=== PATIENT | male | born 1955 | race Caucasian/White ===

== ENCOUNTER 2023-11-07 06:52 | Day surgery (SDC) | payer OTHER, SELFPAY ==
[2023-11-07 06:53] VITALS: BP 145/88; BMI 35.8
[2023-11-07 09:01] VITALS: BP 108/83
[2023-11-07 09:15] VITALS: BP 129/85
[2023-11-07 09:25] VITALS: BP 125/92
== END 2023-11-07 09:41 | disposition home or self-care (01) ==
LOC: GI 06:52
PROVIDERS: ATTENDING PHYSICIAN Internal Medicine Gastroenterology
DX: Z12.11 Encounter for screening for malignant neoplasm of colon (principal); D12.1 Benign neoplasm of appendix; K63.5 Polyp of colon; K57.30 Diverticulosis of large intestine without perforation or abscess without bleeding; K64.0 First degree hemorrhoids; Z86.010 Personal history of colon polyps
CPT/HCPCS: 45388; 88305

== ENCOUNTER 2023-12-23 06:11 | Day surgery (SDC) | payer OTHER, SELFPAY ==
[2023-12-15 06:48] VITALS: BMI 36.4
[2023-12-15 08:52] LABS: Hematocrit 45.1 % (39.0-52.0); Hemoglobin 15.8 g/dL (13.0-18.0); Mean Corpuscular Hgb 31.6 pg (27.0-31.0); Mean Corpuscular Volume 90.2 fL (80.0-94.0); Mean Platelet Volume 9.7 fL (7.4-10.4); Platelet Count 300 10^3/uL (130-400); Red Cell Dist. Width 13.7 % (11.5-14.5); White Blood Cell Count 9.1 10^3/uL (4.8-10.8)
[2023-12-15 09:06] LABS: INR 1.13; PT 14.3 Sec (11.4-14.6)
[2023-12-15 09:07] LABS: APTT 27.7 Sec (23.4-35.0)
[2023-12-15 09:21] LABS: ALT (SGPT) 22 U/L (0-50); AST (SGOT) 21 U/L (17-59); Albumin 4.3 g/dl (3.5-5.0); Alkaline Phosphatase 47 U/L (38-126); Blood Urea Nitrogen 13 mg/dl (9-20); Calcium 9.6 mg/dl (8.4-10.2); Carbon Dioxide 28 mmol/L (22-30); Chloride 105 mmol/L (98-107); Estimated Creatinine Clearance 118 ml/min; Glucose 108 mg/dl (70-99); Potassium 4.5 mmol/L (3.5-5.1); Sodium 140 mmol/L (135-145); Total Bilirubin 0.8 mg/dl (0.2-1.3); Total Protein 6.8 g/dl (6.3-8.2); eGFR > 60.00
[2023-12-15 09:45] LABS: Glycohemoglobin (HgbA1c) 6.2 % (4.0-5.6)
--- NOTE | 2023-12-18 10:49 | CM ---
Patient is scheduled for a Robotic Appendectomy on 12/23/23. Spoke with patient prior to surgery via telephone to complete case management assessment and assess for discharge planning needs. Patient reports that he lives with his significant other
(who is an RN) in a two story home. There are three steps to enter and a flight of steps to the second floor. He currently functions independently. He has no DME and has never had VN services. He has a prescription plan and uses [facility] in [place].
PCP is Pb Gottlieb
Discussed discharge plans. Patient plans to return home at discharge. He states that he will have support from his significant other when he goes home. He has no discharge planning concerns at this time.
[2023-12-23] VITALS (12 sets, daily range): BP systolic 126–165; BP diastolic 83–96; BMI 36.4
[2023-12-23] MEDS: LYRICA 150 MG PO (07:29)
[2023-12-23] MEDS: TYLENOL 1000 MG PO (07:29)
[2023-12-23] MEDS: HEPARIN 5000 UNITS SC (07:29)
[2023-12-23] MEDS: NORMOSOL-R 1000 IV (07:30)
[2023-12-23] MEDS: ENTEREG 12 MG PO (07:30)
--- NOTE | 2023-12-23 10:14 | W.IMMPOSTOP ---
Surgical Immed Post Op Note
-
Primary Surgeon: Nino Bourgeois MD
Assisting Surgeon: Beto Alvarado MD - performed intra-op colonoscopy; PAUL Stone
Pre-op Diagnosis: appendiceal orifice polyp
Post-op Diagnosis: same
Procedure Performed: robotic appendectomy with partial cecectomy, lysis of adhesions greater than 30mins, intra-operative colonoscopy, laparoscopic TAP block
Anesthesia Type: general
Specimen / Cultures: appendix and partial cecum
Estimated Blood Loss: 15mL
IVF: 800mL
UOP: 300mL
Complications: none
Operative Findings: entered with veress, and placed remainder of ports from suprapubic to mayen's point with a left lateral port for the assist; appendix was retro-cecal; lysed adhesions from terminal ileum to right pelvic brim and RLQ and
mobilized cecum in lateral to medial fashion; freed appendix from cecum and divided it's mesentery with vessel-sealer; Dr. Alvarado performed colonoscopy and visualized the appendiceal orifice; the polyp was completely within the orifice and partial
cecectomy was confirmed to be sufficient to remove the polyp entirely; upsized LUQ port to 12mm and stapled across with 60mm with blue load under direct endoscopic visualization; tiny ooze from staple like controlled with electrocautery; no bubbling
noted from staple line; operative field hemostatic; closed LUQ port with priti-lunsford and 0 vicryl; performed lap TAP block bilarterally with total of 30mL of 0.25% marcaine with epi and 0.3mg of dexamethasone mixed; injected remainder of 30mL of
local around incisions and closed skin with 4-0 monocryl; dressed with dermabond
[2023-12-23 10:30] LABS: Glucose - Point of Care 146 mg/dl (70-99)
--- NOTE | 2023-12-23 10:32 | OR.RPT ---
Operative Report
Operative Report
DATE OF OPERATION: 12/23/2023
SURGEON: Nino Bourgeois MD
PREOPERATIVE DIAGNOSIS: Appendiceal orifice sessile serrated polyp
POSTOPERATIVE DIAGNOSIS: Appendiceal orifice sessile serrated polyp
OPERATION: Robotic appendectomy with partial cecectomy, lysis of adhesions greater than 30 minutes, laparoscopic TAP block; intraoperative colonoscopy by Dr. Alvarado
ASSISTANTS:
1. PAUL Stone
2. Beto Alvarado MD for intraoperative colonoscopy
ANESTHESIA: General
ESTIMATED BLOOD LOSS: 15 mL
FINDINGS:
1. Appendix appeared normal, but in retrocecal position; performed lateral to medial mobilization of the cecum with lysis of adhesions from the terminal ileum and cecum to the right pelvic brim and RLQ, as well as adhesions from the appendix to the
cecum and ascending colon
2. On intraoperative colonoscopy, polyp was confined to the appendiceal orifice; stapled across the base to include about 1 cm of cecum under direct endoscopic visualization with the 60 mm robotic stapler with a blue load
SPECIMENS:
1. Appendix with partial cecum
DRAINS: None
COMPLICATIONS: No immediate complications.
INDICATIONS: The patient is a 68-year-old male who was found to have an appendiceal orifice sessile serrated polyp. After two attempts to remove the polyp endoscopically by Dr. Juarez and Dr. Queen, the polyp was still present on the third
colonoscopy, which was biopsy-proven. Therefore, I recommended appendectomy with partial cecectomy in order to completely remove the polyp and eliminate the risk of malignant transformation. The operation was discussed with the patient in detail,
including the risks, benefits and alternatives. Risks described included, but not limited to, bleeding, infection, damage to nearby structures (i.e., bowel, solid organs, ureter), incomplete polyp removal, conversion to open, need for bowel
resection if unable to remove the polyp with partial cecectomy alone, complications related to anastomosis if one is created (i.e.�anastomotic leak, stricture) and anesthetic risks. The patient understood and agreed to proceed. The consent was
signed and placed in the chart.
PROCEDURE IN DETAIL: The patient was taken to the operating room and placed on the operating table in supine position. Sequential compression devices were placed bilaterally. General anesthesia was then induced and the patient was intubated without
complication. Bilateral arms were tucked. Diaz catheter was placed with sterile technique. Preoperative antibiotics were given. The abdomen was shaved, prepped and draped in a sterile fashion. A marking pen was used to jazz out the midline. A
time-out was then performed verifying the correct patient, procedure, operative site, positioning, and special equipment.
At Kaur's point, using an 11 blade scalpel, an 8 mm incision was made. A Veress needle was used to obtain abdominal access. After 3 clicks, insufflation was initiated and the opening pressure was noted to be less than 8 mmHg. The abdomen was
insufflated to a pressure of 12, which the patient tolerated well. The 8 mm robotic trocar was then introduced and the robotic endoscope advanced. No injury from initial Veress placement or port placement was noted. The abdomen was explored.
There were no concerning peritoneal lesions.
In a diagonal fashion from Kaur's point to the suprapubic region, 3 more robotic trocars were placed under direct visualization taking care to avoid injury to the epigastric vessels and the bladder. The suprapubic port was placed 2 fingerbreadths
above the pubic symphysis in case this needed to be converted to a Pfannenstiel incision. An assist port was placed in the left lateral abdomen under direct visualization as well. Using atraumatic graspers, the omentum was brushed cephalad above the
transverse colon. Then, the patient was placed in [id number] with slight Trendelenburg. The robot was docked from the patient's right side. From the suprapubic port to Kaur's point, the instruments introduced were the bipolar grasper,
camera, scissors and tip up grasper.
To begin, I grasped and elevated the cecum. However, this was hindered due to some adhesions from the terminal ileum to the right pelvic brim and from the cecum to the RLQ. Therefore, I performed adhesiolysis to free up the cecum and terminal
ileum. I swept the small bowel towards the left upper quadrant. I then identified the appendix, which was adherent to the cecum and ascending colon in a retrocecal position. I further mobilized the cecum in a lateral to medial approach to
completely expose the cecum and the appendix. I then freed the appendix from the cecum and ascending colon with a combination of blunt and sharp dissection, avoiding injury to the colon. I created a hole in the mesoappendix at the base of the
appendix and I divided the remainder of the mesoappendix with the vessel sealer staying close to the appendix. I clearly identified the terminal ileum, base of the appendix and cecum. Then, Dr. Alvarado performed an intraoperative colonoscopy. He
inserted the colonoscope transanally and advanced this to the cecum. The prep was poor. However, once he arrived at the cecum, he was able to irrigate and suction the liquid stool in order to nicely expose and visualize the appendiceal orifice.
There was no polyp seen emanating from the appendiceal orifice, but there was a very slight elevation in the ridge of the appendiceal orifice, likely signifying remaining polyp within the appendix. Under direct endoscopic visualization, I placed
the appendix on tension and use my tip-up graspers to simulate the stapler. There was sufficient room between the base of the appendix and the terminal ileum to come across with a robotic stapler and ensure the entire base was included. Therefore,
Christian upsized to the left upper quadrant port to a 12 mm and advanced the 60 mm robotic stapler with a blue load. Under direct endoscopic visualization, I advanced the robotic stapler across the base of the appendix. I placed the appendix on
slight tension in order to to pull about 1 cm of cecum into the jaws. The base of the appendix was entirely included. Therefore, I clamped and fired the stapler. The appendix was then passed through the left upper quadrant port and passed off as
specimen. I evaluated the staple line. There was minimal ooze from one point, which was easily controlled with a tap of electrocautery. The remainder of the right lower quadrant was evaluated and hemostasis was confirmed. No bowel injury was
noted in the ascending colon, cecum or terminal ileum.
The robotic instruments were then removed and the robot was undocked. The left upper quadrant port was closed with the Fredy Salas device and a simple 0 Vicryl stitch. A laparoscopic TAP block was performed using 30 mL of 0.25% Marcaine with
epi, mixed with 0.3 mg of dexamethasone. This was injected in the lateral abdomen bilaterally under direct visualization. The robotic ports were removed under direct visualization and no bleeding was noted. The abdomen was allowed to desufflate.
Another 30 mL of 0.25% Marcaine with epi, mixed with 0.3 mg of dexamethasone, was injected around the incisions. The incisions were then closed with 4-0 Monocryl in a subcuticular fashion and dressed with Dermabond.
At this point, the procedure was complete. The patient was awoken and extubated without complication. The diaz was removed. All needle, sponge and instrument counts were reported as correct. The patient tolerated the procedure well and was
transferred to the recovery room in stable condition.
Of note, Beto Alvarado MD, visitor information assistant, was necessary during this procedure for exploratory purposes and performance of intraoperative colonoscopy. I was present for the entire duration of the case.
DICTATED BY: Nino Bourgeois MD
[2023-12-23] MEDS: ZOFRAN 4 MG IV (11:51)
--- NOTE | 2023-12-23 11:54 | SUR.PHASEI ---
Pt c/o nausea while giving report to FELTON RN. Pt medicated with Zofran at this time. Pt states nausea was resolving.
[2023-12-23 13:39] LABS: Glucose - Point of Care 138 mg/dl (70-99)
== END 2023-12-23 14:44 | disposition home or self-care (01) ==
LOC: SDS 06:11
PROVIDERS: ATTENDING PHYSICIAN Surgery; FAMILY PHYSICIAN Internal Medicine
DX: D12.1 Benign neoplasm of appendix (principal); K66.0 Peritoneal adhesions (postprocedural) (postinfection)
CPT/HCPCS: 44970; 45399; 88304; 36415; 71046; 80053; 82962; 83036; 85027; 85610; 85730; 86850; 86900; 86901; 93005; J1335

== ENCOUNTER 2025-01-21 06:31 | Day surgery (SDC) | payer OTHER, SELFPAY | END 2025-01-21 11:30 | disposition home or self-care (01) | LOC: GI 06:31 | PROVIDERS: ATTENDING PHYSICIAN Specialist | DX: Z09 Encounter for follow-up examination after completed treatment for conditions other than malignant neoplasm (principal); K57.30 Diverticulosis of large intestine without perforation or abscess without bleeding; Z86.0101 Personal history of adenomatous and serrated colon polyps | CPT/HCPCS: 45378 ==